=== PATIENT | female | born 1950 | race Caucasian/White ===

== ENCOUNTER 2021-10-20 10:41 | Outpatient (CLI) | payer OTHER, SELFPAY ==
[2021-10-20 16:50] LABS: Cholesterol 123 mg/dL (0-200); HDL Direct 33 mg/dL; Triglycerides 201 mg/dL (<150)
[2021-10-20 16:53] LABS: Free T4 Free Thyroxine 0.87 ng/mL (0.78-2.19)
[2021-10-20 17:00] LABS: LDL Cholesterol Direct 49 mg/dL
[2021-10-20 20:30] LABS: Hemoglobin A1C 6.1 % (<5.7)
[2021-10-24 08:44] LABS: Testosterone Total 328 ng/dL (2-45)
[2021-10-25 13:54] LABS: Testosterone Free 30.5 pg/mL (0.2-5.0)
== END 2021-10-20 10:42 | disposition home or self-care (01) ==
LOC: ANHWCLAB 10:45
PROVIDERS: PCP Internal Medicine; Referring Provider Internal Medicine Endocrinology, Diabetes & Metabolism; Visit Provider Internal Medicine Endocrinology, Diabetes & Metabolism
DX: L68.0 Hirsutism (principal); E28.8 Other ovarian dysfunction; E88.81 Metabolic syndrome and other insulin resistance; R79.89 Other specified abnormal findings of blood chemistry; E78.5 Hyperlipidemia, unspecified
CPT/HCPCS: 36415; 80061; 83036; 84402; 84403; 84439; 84443